=== PATIENT | male | born 1980 | race African-American/Black ===

== ENCOUNTER 2022-11-18 16:16 | Emergency (ER) | payer OTHER ==
--- NOTE | 2022-11-18 17:18 | XR ---
EXAMINATION TYPE: XR shoulder complete RT DATE OF EXAM: 11/18/2022 5:10 PM INDICATION: Patient age:Male; 41 years old; Reason for study: fall on shoulder; COMPARISON: None TECHNIQUE: The right shoulder was examined in AP, internally rotated and scapular Y projections. . FINDINGS: No evidence of acute osseous pathology, joint dislocation, or soft tissue swelling. The remaining por tions of the visualized chest are unremarkable. IMPRESSION: No acute osseous pathology.
[2022-11-18] MEDS ORDERED: BACITRACIN OINT 1 EACH PACKET TOPICAL ONE (17:39)
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
[2022-11-18 18:45] VITALS: BP 130/82; PULSE 87; RESP 18; TEMP 98
== END 2022-11-18 18:30 | disposition home or self-care (01) ==
LOC: EC 16:16
DX: M25.511 Pain in right shoulder (principal); F12.90 Cannabis use, unspecified, uncomplicated; V87.8XXA Person injured in other specified noncollision transport accidents involving motor vehicle (traffic), initial encounter
CPT/HCPCS: 99283